=== PATIENT | male | born 1945 | race Caucasian/White ===

== ENCOUNTER 2019-06-11 09:29 | Inpatient (IN) | payer MEDICARE ==
[2019-06-06 10:01] LABS: BASOPHILS # (AUTO) 0.1 (0.0-0.1); BASOPHILS % 0.7 % (0.0-1.0); EOSINOPHILS # (AUTO) 0.1 (0.0-0.4); HEMATOCRIT 50.9 % (38.2-49.6); HEMOGLOBIN 17.1 g/dL (14.0-18.0); LYMPHOCYTES # (AUTO) 2.6 (1.0-3.2); LYMPHOCYTES % 28.1 % (18.0-39.1); MEAN CORPUSCULAR HEMOGLOBIN 33.9 pg (28-32); MEAN CORPUSCULAR HGB CONC 33.6 g/dL (31-35); MEAN CORPUSCULAR VOLUME 100.8 fL (81-99); MONOCYTES % 10.5 % (4.4-11.3); NEUTROPHILS # (AUTO) 5.5 (2.1-6.9); PLATELET COUNT 295 x10e3/uL (140-360); RED BLOOD COUNT 5.05 x10e6/uL (4.3-5.7); RED CELL DISTRIBUTION WIDTH 14.3 % (11.7-14.4)
[2019-06-06 10:17] LABS: ANION GAP 17.3 mmol/L (8-16); BLOOD UREA NITROGEN 15 mg/dL (7-26); BUN/CREATININE RATIO 16 (6-25); CALCIUM 10.4 mg/dL (8.4-10.2); CARBON DIOXIDE 29 mmol/L (22-29); CHLORIDE 101 mmol/L (98-107); CREATININE, SERUM 0.95 mg/dL (0.72-1.25); EST GLOMERULAR FILTRATION RATE > 60 ML/MIN (60-); GLUCOSE 104 mg/dL (74-118); POTASSIUM 4.3 mmol/L (3.5-5.1); SODIUM 143 mmol/L (136-145)
--- NOTE | 2019-06-06 11:01 | Diagnostic Imaging Report ---
EXAMINATION: CHEST 2 VIEWS INDICATION: Pre-operative COMPARISON: None FINDINGS: LINES/TUBES:None LUNGS:The lungs are mildly hyperinflated. No focal consolidation or pulmonary edema. PLEURA:No pleural effusion or pneumothorax. MEDIASTINUM:The cardiomediastinal silhouette appears normal in size and shape. Atherosclerotic calcifications of the thoracic aorta. BONES/SOFT TISSUES:No acute osseous injury. ABDOMEN:No free air under the diaphragm. IMPRESSION: Mildly hyperinflated lungs. No focal pneumonia or pulmonary edema. Signed by: Michael Carrion MD on 06/06/2019 10:58 AM
[~2019-06-11] VITALS: Ht 180.3 cm; Wt 85.3 kg
[~2019-06-11 09:29] MED LIST: LOSARTAN POTAS100 MG PO; LOVASTATIN10 MG PO; MULTI-VITAMIN1 EACH PO
--- OUTSIDE RECORDS SUMMARY | 2019-06-11 09:31 | XMS REPORT ---
[facility] Address Unknown Phone Unavailable Care Team Providers Care Customer Operations Manager Name Role Phone ARCELIA CLANCY Unavailable Unavailable Problems This patient has no known problems. Allergies, Adverse Reactions, Alerts This patient has no known allergies or adverse reactions. Medications This patient has no known medications. Results Test Description Test Time Test Comments Text Results Atomic Results Result Comments CHEST 2 VIEWS 2019-06-06 10:57:00 [place] [id number] Patient Name: MALIK ATKINSON MR #: [id number] : 1945 Age/Sex: 73/M Req #: [id number] [facility] Physician: Ordered by: ARCELIA CLANCY MD Report #: [id number] Location: OR Room/Bed: Procedure: [id number] DX/CHEST 2 VIEWS Exam Date: 06/06/19 Exam Time: 1010 REPORT STATUS: Signed EXAMINATION: CHEST 2 VIEWS INDICATION: Pre-operative COMPARISON: None FINDINGS: LINES/TUBES:None LUNGS:The lungs are mildly hyperinflated. No focal consolidation or pulmonary edema. PLEURA:No pleural effusion or pneumothorax. MEDIASTINUM:The cardiomediastinal silhouette appears normal in size and shape. Atherosclerotic calcifications of the thoracic aorta. BONES/SOFT TISSUES:No acute osseous injury. ABDOMEN:No free air under the diaphragm. IMPRESSION: Mildly hyperinflated lungs. No focal pneumonia or pulmonary edema. Signed by: Jose Carrion MD on 06/06/2019 10:58 AM Dictated By: JOSE CARRION MD 57 Transcribed By: MERY on 06/06/191057 COPY TO: ARCELIA CLANCY MD
[2019-06-11] MEDS ORDERED: METRONIDAZOLE 500MG/NS 100ML 0 ML IV ONE (10:02)
[2019-06-11] MEDS ORDERED: LEVOFLOXACIN 500MG/D5W 100ML 100 ML IV ONE (10:02)
[2019-06-11] MEDS ORDERED: METRONIDAZOLE 500MG/NS 100ML IV ONE (10:07)
[2019-06-11] MEDS ORDERED: BUPIVACAINE 0.5%/EPI 30 ML SDV INJ ONE (10:35)
[2019-06-11] MEDS ORDERED: BUPIVACAINE HCL 0.5% INJ 30 ML VIAL INJ ONE (10:52)
[2019-06-11] MEDS: DEXTROSE 5%/LACTATED RINGERS 1,000 ML IV SCH ×2 (13:11→21:25)
[2019-06-11] MEDS ORDERED: DIPHENHYDRAMINE HCL INJ 50 MG/ML VIAL IM PRN (13:15)
[2019-06-11] MEDS ORDERED: KETOROLAC TROMETHAMINE 30 MG/ML VIAL IV PRN (13:15)
[2019-06-11] MEDS ORDERED: ONDANSETRON HCL INJ 2MG/ML 2ML 2 MG/ML VIAL IV PRN (13:15)
[2019-06-11] MEDS ORDERED: NALOXONE HCL INJ 0.4 MG/ML AMP IV PRN (13:15)
[2019-06-11] MEDS ORDERED: SUGAMMADEX SODIUM 200 MG/2 ML VIAL IV ONE (13:24)
[2019-06-11] MEDS: HYDROMORPHONE 0.2MG/ML-SOD CHL 30ML PCA SYRINGE IV PRN (13:38)
--- NOTE | 2019-06-11 13:38 | NUR ---
Received patient from PACU. Awake, alert, lying in bed with respiration even and unlabored without SOB. 3L NC in placed, indwelling peña catheter in placed, intact draining yellow colored urine to bag. Abdominal Midline incision with dressing intact. clean and dry, no bleeding noted. Patient ion STRATIGRAPHER pump with IV fluids running at 100 ml/hr. Denies pain at this time. Spouse at bedside. Call light in reach.
[2019-06-11] MEDS ORDERED: HYDROMORPHONE 1MG/1ML INJ ONE (13:47)
[2019-06-11] MEDS ORDERED: PHENYLEPHRINE HCL 1% 10 MG/ML VIAL ONE (14:18)
--- NOTE | 2019-06-11 14:22 | Operative Report ---
DATE OF PROCEDURE: 06/11/2019 SURGEON: Miguel Angel Patel MD PREOPERATIVE DIAGNOSIS: Sigmoid colon diverticulitis. POSTOPERATIVE DIAGNOSIS: Sigmoid colon diverticulitis with extensive diverticular disease. PROCEDURE: Laparoscopic-assisted sigmoid colon resection. BIKE MECHANIC: None. ANESTHESIA: General. INDICATIONS AND FINDINGS: The patient is a 73-year-old male, who has had an episode of severe sigmoid colon diverticulitis. Workup revealed extensive diverticular disease involving most of the colon surgery, there was an area of inflammation, thickening and fibrosis in the mid sigmoid colon, where there was very severe diverticulosis. There was diverticular disease involving almost the entire colon, however, the distal sigmoid colon had minimal diverticular disease. The proximal sigmoid and distal descending colon had no inflammatory changes. TECHNIQUE: After adequate general endotracheal anesthesia, the patient is in supine position, and the abdomen was prepped and draped in a sterile fashion with ChloraPrep solution. Skin just below the umbilicus was infiltrated with 0.5% Marcaine. Incision was made. Abdominal wall was elevated and Veress needle was introduced. Pneumoperitoneum was then created. A 10 mm trocar and cannula was then passed through this wound. Laparoscopic camera was introduced. Initial laparoscopy revealed no free fluid. There was extensive diverticular disease involving the colon was initially seen, this turned out to be sigmoid colon. A 5 mm trocar and cannula was placed in the epigastrium, left midline and a 5 mm trocar and cannula was placed in lower midline. Evaluation of the colon revealed extensive diverticular disease involving almost the entire colon. However, the distal sigmoid colon had only minimal diverticular disease. No inflammation. There was an area of inflammation with fibrosis and thickening of the colon in the mid sigmoid. The colon was mobilized by dividing peritoneal attachments. The small bowel mesentery was adherent to the area of inflamed colon, this was freed using the LigaSure device, this was in the mid sigmoid colon. Left colon was mobilized all the way up to the splenic flexure colon using LigaSure device. The ureters at left ureter were identified and preserved. Once the colon was completely mobilized, the midline incision made in the periumbilical area. The peritoneal cavity entered the colon delivered up into the wound. The mid sigmoid colon was very inflamed and thickened causing with partial obstruction. The colon distally has had minimal diverticular disease and the colon was divided at this level, which was the distal sigmoid using a ESTEPHANIE stapler, the proximal colon divided and the distal descending colon, mesentery colon divided using LigaSure device. Some larger vessels were suture ligated with 2-0 silk and the specimen was removed. Anastomosis made between the proximal and distal colon using a ESTEPHANIE stapler and TL60 stapler. The colon easily came together without tension. The wound was irrigated with saline. Inspected for hemostasis, which was seen to be adequate, it was irrigated further with saline. All fluid aspirated, inspected once again for hemostasis, which was seen to be adequate. The midline fascia was closed with running suture of #1 PDS. Subcutaneous tissues were irrigated with saline. Skin to all wounds was closed with regis. Sterile dressing was applied. The patient tolerated the procedure well. Estimated blood loss was 250 mL. There were no complications. All counts were correct and the patient was taken to the recovery room in satisfactory condition. MD ALVAREZ To/[place]ALLAS /[id number] cc: Andres Thomas MD
[2019-06-11] MEDS ORDERED: ACETAMINOPHEN 1000 MG/100 ML IV PRN (15:00)
[2019-06-11] MEDS ORDERED: MIDAZOLAM HCL 2 MG/2 ML VIAL ONE (15:02)
[2019-06-11] MEDS ORDERED: FENTANYL CITRATE/PF 100MCG/2 ML INJ ONE (15:02)
--- NOTE | 2019-06-11 15:44 | NUR ---
Informed Dr. Villa of medical management consult
[2019-06-11 16:10] VITALS: BP 112/59
[2019-06-11 16:18] VITALS: BP 112/59
[2019-06-11 16:24] VITALS: BP 112/59
[2019-06-11] MEDS: METRONIDAZOLE 500MG/NS 100ML 100 ML IV SCH (17:25)
[2019-06-11] MEDS ORDERED: NEOSTIGMINE 5 MG/5ML SYR ONE (18:38)
[2019-06-11] MEDS ORDERED: GLYCOPYRROLATE INJ 1MG/ 5 ML SYR ONE (18:38)
[2019-06-11] MEDS ORDERED: SEVOFLURANE INHAL SOLN 250 ML PEN BTL ONE (18:38)
[2019-06-11] MEDS ORDERED: ACETAMINOPHEN 1000 MG/100 ML IV ONE (18:38)
[2019-06-11] MEDS ORDERED: ROCURONIUM BROMIDE 10 MG/ML 5ML VIAL ONE (18:38)
[2019-06-11] MEDS ORDERED: PROPOFOL IV EMULSION 10 MG/ML 20 ML VIAL ONE (18:38)
[2019-06-11] MEDS ORDERED: LIDOCAINE HCL 2% LOCAL INJ 5 ML SDV VIAL INJ ONE (18:38)
[2019-06-11] MEDS ORDERED: ONDANSETRON HCL INJ 2MG/ML 2ML 2 MG/ML VIAL ONE (18:38)
--- NOTE | 2019-06-11 19:11 | NUR ---
Report given to dyeing machine back tender. Respiration even and unlabored without SOB. Call light in reach.
[2019-06-11 20:00] VITALS: BP 114/70
[2019-06-11 21:00] VITALS: BP 114/70
[2019-06-11] MEDS: PRAVASTATIN 20 MG TAB PO SCH (21:26)
[2019-06-12] VITALS (10 sets, daily range): BP systolic 126–175; BP diastolic 66–97
[2019-06-12] MEDS: METRONIDAZOLE 500MG/NS 100ML 100 ML IV SCH ×4 (02:45→17:29)
[2019-06-12] MEDS: DEXTROSE 5%/LACTATED RINGERS 1,000 ML IV SCH ×3 (05:11→18:14)
[2019-06-12] MEDS: HYDROMORPHONE 0.2MG/ML-SOD CHL 30ML PCA SYRINGE IV PRN (05:31)
[2019-06-12 06:47] LABS: BASOPHILS # (AUTO) 0.1 (0.0-0.1); BASOPHILS % 0.4 % (0.0-1.0); EOSINOPHILS % 0.1 % (0.0-6.0); HEMATOCRIT 44.8 % (38.2-49.6); HEMOGLOBIN 14.7 g/dL (14.0-18.0); LYMPHOCYTES # (AUTO) 1.8 (1.0-3.2); LYMPHOCYTES % 12.6 % (18.0-39.1); MEAN CORPUSCULAR HEMOGLOBIN 33.2 pg (28-32); MEAN CORPUSCULAR HGB CONC 32.8 g/dL (31-35); MEAN CORPUSCULAR VOLUME 101.1 fL (81-99); MONOCYTES # (AUTO) 1.4 (0.2-0.8); MONOCYTES % 9.6 % (4.4-11.3); NEUTROPHILS # (AUTO) 10.9 (2.1-6.9); NEUTROPHILS % 76.8 % (38.7-80.0); PLATELET COUNT 225 x10e3/uL (140-360); RED BLOOD COUNT 4.43 x10e6/uL (4.3-5.7); RED CELL DISTRIBUTION WIDTH 14.2 % (11.7-14.4)
[2019-06-12 07:08] LABS: ANION GAP 14.9 mmol/L (8-16); BLOOD UREA NITROGEN 9 mg/dL (7-26); BUN/CREATININE RATIO 12 (6-25); CALCIUM 8.4 mg/dL (8.4-10.2); CARBON DIOXIDE 25 mmol/L (22-29); CHLORIDE 101 mmol/L (98-107); CREATININE, SERUM 0.75 mg/dL (0.72-1.25); EST GLOMERULAR FILTRATION RATE > 60 ML/MIN (60-); GLUCOSE 67 mg/dL (74-118); POTASSIUM 3.9 mmol/L (3.5-5.1); SODIUM 137 mmol/L (136-145)
--- NOTE | 2019-06-12 07:43 | Consultation ---
DATE OF CONSULTATION: REASON FOR CONSULTATION: Postoperative management. HISTORY OF PRESENT ILLNESS: The patient is a 73-year-old gentleman, well known to me, who is now status post sigmoidectomy secondary to severe diverticulitis, who is doing well postoperatively with some pain in the abdominal area, but denies any chest pain, fever, chills, nausea, vomiting, headache, or dizziness. PAST MEDICAL HISTORY: Significant for hyperlipidemia, hypertension, cognitive impairment, and hypotestosterone. MEDICATIONS: See MAR. ALLERGIES: PENICILLIN, WHICH IS HIVES AND MORPHINE, WHICH IS ITCHING. SOCIAL HISTORY: He is . He lives at home with his . He drinks about two drinks per day and he is one pack per day smoker. FAMILY HISTORY: Breast cancer and diabetes. PHYSICAL EXAMINATION: VITAL SIGNS: Temperature 98.6, pulse 74, blood pressure 136/74, and sats 98%. GENERAL: He is in no apparent distress, lying in bed. NECK: Supple. CARDIOVASCULAR: Regular rate and rhythm. LUNGS: Clear to auscultation bilaterally. ABDOMEN: Soft. No peritoneal signs. Nondistended. No bowel sounds at this current time. EXTREMITIES: No clubbing or cyanosis. NEUROLOGIC: Nonfocal. ASSESSMENT AND PLAN: 1. Status post sigmoidectomy and diverticular disease. Continue with postoperative care. 2. Hypertension. We will continue to monitor since he is n.p.o. 3. Hyperlipidemia. We will restart his medicine once he is p.o. 4. Cognitive impairment. We will also restart his medications once he is p.o. 5. Abdominal pain. Continue with pain control. Please see hospital chart for full details. MD CARLOS Rahman/[place] /[id number]
--- NOTE | 2019-06-12 07:52 | NUR ---
patient endorsed to next shift for continuity of care.
[2019-06-12] MEDS: LOSARTAN POTASSIUM 100 MG TAB PO SCH (08:42)
[2019-06-12] MEDS: LEVOFLOXACIN 500MG/D5W 100ML 100 ML IV SCH (08:42)
--- NOTE | 2019-06-12 09:38 | NUR ---
After trying to have BM patient states " I could not have BM" small amount of blood clots and small amount of bright red blood noted. Patient AAOX4 to time, person, place. Respirations even and unlabored. O2 2L NC.Paged Dr. Patel to notify of patient's status. No new orders.
--- NOTE | 2019-06-12 19:00 | NUR ---
Report given to oncoming nurse of patient's status. Resting in bed. No s/s of acute distress noted. Side rails upx2, call light within reach. Instructed to use call light for assistance. Voiced understanding
[2019-06-12] MEDS: PRAVASTATIN 20 MG TAB PO SCH (21:26)
[2019-06-13] VITALS (7 sets, daily range): BP systolic 120–153; BP diastolic 71–85
[2019-06-13] MEDS: METRONIDAZOLE 500MG/NS 100ML 100 ML IV SCH ×4 (00:55→17:14)
[2019-06-13] MEDS: HYDROMORPHONE 0.2MG/ML-SOD CHL 30ML PCA SYRINGE IV PRN (03:49)
[2019-06-13] MEDS: DEXTROSE 5%/LACTATED RINGERS 1,000 ML IV SCH ×2 (04:41→12:45)
--- NOTE | 2019-06-13 06:50 | NUR ---
patient condition throughout the night was stable, patient endorsed to next shift for continuity of care.
--- NOTE | 2019-06-13 07:00 | NUR ---
BEDSIDE ROUNDS COMPLETE NO DISTRESS NOTED UPDATED ON POC VOICED UNDERSTANDING, RAMIREZ PAIN AT THIS TIME, DSG TO ABDOMEN C/D/I, IVF INFUSING TO R AC 20G NO SS OF INFILTRATION NOTED, NO OTHER CO VOCIED CALL LIGHT IN REACH WILL CONTINUE TO MONITOR
[2019-06-13] MEDS: LOSARTAN POTASSIUM 100 MG TAB PO SCH (09:00)
[2019-06-13] MEDS: LEVOFLOXACIN 500MG/D5W 100ML 100 ML IV SCH (09:40)
[2019-06-13] MEDS ORDERED: HYDROMORPHONE 0.2MG/ML-SOD CHL 30ML PCA SYRINGE IV PRN (13:45)
--- NOTE | 2019-06-13 15:15 | NUR ---
ALL SOURCE COLLECTION MANAGER DC'D PER ORDERED, WILL CONTINUE TO MONITOR
[2019-06-13] MEDS ORDERED: HYDROCODONE/APAP 7.5MG-325MG 1 EA TAB PO PRN (19:00)
--- NOTE | 2019-06-13 19:05 | NUR ---
SPOKE WITH DR CLANCY RE: PAIN PO PAIN MEDICATION NEW ORDERS NOTED
[2019-06-13] MEDS: PRAVASTATIN 20 MG TAB PO SCH (21:36)
[2019-06-14] VITALS (8 sets, daily range): BP systolic 109–138; BP diastolic 56–74
[2019-06-14] MEDS: METRONIDAZOLE 500MG/NS 100ML 100 ML IV SCH ×4 (00:10→18:20)
[2019-06-14] MEDS: DEXTROSE 5%/LACTATED RINGERS 1,000 ML IV SCH ×2 (01:57→15:52)
--- NOTE | 2019-06-14 06:38 | NUR ---
DE LA FUENTE WAS D/C PATIENT TOLERATED WELL. DE LA FUENTE INTACT. THE PATIENT WAS ABLE TO GET UP AND WALK TO THE BATHROOM WITH WALKER AND STAND BY ASSISTANCE AND WAS ABLE TO VOID USING THE TOILET.
--- NOTE | 2019-06-14 07:00 | NUR ---
RECEIVED PATIENT RESTING IN BED NO SIGNS OF DISTRESS. BED LOW, WHEELS LOCKED, SIDE RAILS X2. CALL LIGHT IN REACH WILL CONTINUE TO MONITOR PATIENT.
[2019-06-14] MEDS: LEVOFLOXACIN 500MG/D5W 100ML 100 ML IV SCH (08:02)
[2019-06-14] MEDS: LOSARTAN POTASSIUM 100 MG TAB PO SCH (08:05)
[2019-06-14] MEDS ORDERED: ONDANSETRON HCL 4 MG ORAL DISINTEGRATING TAB PO PRN (11:45)
--- NOTE | 2019-06-14 14:29 | Progress Note ---
DATE: SUBJECTIVE: The patient is doing well. Still not passing gas. His pain is doing better overall. OBJECTIVE: VITAL SIGNS: Stable. He is afebrile. GENERAL: No apparent distress. CARDIOVASCULAR: Regular rate and rhythm. LUNGS: Decreased breath sounds. ABDOMEN: Hypoactive bowel sounds, but they are present. Nondistended. No peritoneal signs. EXTREMITIES: No clubbing or cyanosis. NEUROLOGIC: Nonfocal. ASSESSMENT AND PLAN: 1. Status post diverticular surgery. Continue with postoperative care per Dr. Patel. 2. Abdominal pain. Continue with pain control. 3. Hypertension. We will continue to monitor. Please see hospital chart for full details. MD CARLOS Rahman/ADLLAS /[id number]
--- NOTE | 2019-06-14 21:10 | NUR ---
Assessment done.no resp.distress,no pain voiced.voided.bed locked an din lowest position.phone and call light within reach.instructed to call for assistance as needed.
[2019-06-14] MEDS: PRAVASTATIN 20 MG TAB PO SCH (21:23)
[2019-06-15] VITALS (8 sets, daily range): BP systolic 106–133; BP diastolic 58–72
[2019-06-15] MEDS: METRONIDAZOLE 500MG/NS 100ML 100 ML IV SCH ×2 (00:24→05:22)
[2019-06-15] MEDS: DEXTROSE 5%/LACTATED RINGERS 1,000 ML IV SCH (05:22)
--- NOTE | 2019-06-15 06:58 | NUR ---
Bed side shift report given to the oncoming Rn.stable condition.
--- NOTE | 2019-06-15 07:03 | NUR ---
RECEIVED PATIENT ASLEEP IN BED NO SIGNS OF DISTRESS. BED LOW, WHEELS LOCKED, SIDE RAILS X2. CALL LIGHT IN REACH WILL CONTINUE TO MONITOR PATIENT.
--- NOTE | 2019-06-15 08:04 | Progress Note ---
DATE: This is Dr. Panchito Shaikh covering for Dr. Thomas. Patient of Dr. Thomas's SUBJECTIVE: The patient is status post colon resection and for diverticular surgery, the patient continues to be on postoperative care. Bowel sounds are present. The patient did have a bowel movement currently according to the patient. No chest pains. No shortness of breath. The patient has complained of reflux esophagitis. OBJECTIVE: VITAL SIGNS: Temperature is 97.9, pulse of 80, respirations of 18, blood pressure is 114/60, pulse oximetry of 96%. HEENT: The patient is anicteric. CVS: S1 and S2 normal. ABDOMEN: Has a PEG tube in. Bowel sounds are very hypoactive. EXTREMITIES: No clubbing, no cyanosis, no edema. LABORATORY VALUES: [place] [address], hemoglobin of 14.7. Chemistry shows sodium of 137, potassium of 3.9, BUN of 12, creatinine of 0.75. ASSESSMENT: A 73-year-old patient status post colon resection, sigmoid colon resection for diverticulitis. The patient is currently feeling better except for reflux esophagitis. We will start him on pantoprazole 40 mg q.a.m. and the patient continues to be on pain management as needed. Further recommendation per clinical course. We will continue on him hypertensive medication, which includes losartan. Currently, the patient is on Levaquin and metronidazole. MD PIERO NievesJ/MODL /[id number]
[2019-06-15] MEDS: LOSARTAN POTASSIUM 100 MG TAB PO SCH (09:20)
[2019-06-15] MEDS: LEVOFLOXACIN 500MG/D5W 100ML 100 ML IV SCH (09:20)
[2019-06-15] MEDS: PANTOPRAZOLE SOD 40 MG TABEC PO SCH (09:20)
[2019-06-15] MEDS ORDERED: SODIUM CHLORIDE FLUSH 10 ML SYR INJ PRN (11:00)
--- NOTE | 2019-06-15 12:05 | NUR ---
PATIENT A/O X3, EVEN RESPIRATIONS ON RA. LUNG SOUNDS CLEAR TO AUSCULTATION. PATIENT ADVANCED TO REGULAR DIET TODAY PER DR. CLANCY ORDER. PATIENT PASSING GAS, NO BM AT THIS TIME. LEFT FA 20 GAUGE IV SL. NO PAIN AT THIS TIME. DRESSING TO ABDOMEN CLEAN, DRY, AND INTACT. VS STABLE. CALL LIGHT IN REACH WILL CONTINUE TO MONITOR PATIENT.
--- NOTE | 2019-06-15 19:00 | NUR ---
Bed side shift report taken from morning Rn.pt is lyeing in the bed.stable condition.no pain voiced.
[2019-06-15] MEDS: PRAVASTATIN 20 MG TAB PO SCH (20:28)
[2019-06-16] VITALS (8 sets, daily range): BP systolic 104–123; BP diastolic 62–79
[2019-06-16 06:23] LABS: BASOPHILS # (AUTO) 0.1 (0.0-0.1); BASOPHILS % 0.7 % (0.0-1.0); EOSINOPHILS # (AUTO) 0.4 (0.0-0.4); EOSINOPHILS % 5.2 % (0.0-6.0); HEMATOCRIT 41.8 % (38.2-49.6); HEMOGLOBIN 13.8 g/dL (14.0-18.0); LYMPHOCYTES # (AUTO) 1.9 (1.0-3.2); MONOCYTES # (AUTO) 1.1 (0.2-0.8); MONOCYTES % 13.2 % (4.4-11.3); NEUTROPHILS % 58.2 % (38.7-80.0); PLATELET COUNT 224 x10e3/uL (140-360); RED BLOOD COUNT 4.18 x10e6/uL (4.3-5.7); RED CELL DISTRIBUTION WIDTH 13.9 % (11.7-14.4)
[2019-06-16 06:37] LABS: ANION GAP 9.1 mmol/L (8-16); BLOOD UREA NITROGEN 8 mg/dL (7-26); BUN/CREATININE RATIO 12 (6-25); CALCIUM 9.1 mg/dL (8.4-10.2); CARBON DIOXIDE 28 mmol/L (22-29); CHLORIDE 103 mmol/L (98-107); CREATININE, SERUM 0.67 mg/dL (0.72-1.25); EST GLOMERULAR FILTRATION RATE > 60 ML/MIN (60-); GLUCOSE 85 mg/dL (74-118); POTASSIUM 3.1 mmol/L (3.5-5.1); SODIUM 137 mmol/L (136-145)
--- NOTE | 2019-06-16 07:00 | NUR ---
Bed side shift report given to the oncoming Rn.stable condition.
--- NOTE | 2019-06-16 07:00 | NUR ---
RECEIVED PATIENT ASLEEP IN BED NO SIGNS OF DISTRESS. BED LOW, WHEELS LOCKED, SIDE RAILS X2. CALL LIGHT IN REACH WILL CONTINUE TO MONITOR PATIENT.
[2019-06-16] MEDS ORDERED: POTASSIUM CHLORIDE 20 MEQ TAB CR PO STA (07:16)
[2019-06-16] MEDS: PANTOPRAZOLE SOD 40 MG TABEC PO SCH (08:35)
[2019-06-16] MEDS: LOSARTAN POTASSIUM 100 MG TAB PO SCH (08:35)
[2019-06-16] MEDS: DOCUSATE SODIUM 100 MG CAP PO SCH ×2 (08:35→16:37)
--- NOTE | 2019-06-16 11:00 | NUR ---
PATIENT A/O X3, EVEN RESPIRATIONS ON RA. LUNG SOUNDS CLEAR TO AUSCULTATION. PATIENT PASSING GAS, NO BM AT THIS TIME. LEFT FA 20 GAUGE IV SL. NO PAIN AT THIS TIME. ABDOMINAL INCISION OPEN TO AIR, NO DRAINAGE. VS STABLE. CALL LIGHT IN REACH WILL CONTINUE TO MONITOR PATIENT.
--- NOTE | 2019-06-16 13:46 | NUR ---
PATIENT AMBULATING WITH IN HALLWAY. STEADY GAIT.
--- NOTE | 2019-06-16 13:54 | Progress Note ---
DATE: Covering for Dr. Thomas. SUBJECTIVE: The patient is status post colon surgical resection, has some bowel sounds. No bowel movements yet. Positive for gas. No chest pain. No shortness of breath. The patient is ambulating. OBJECTIVE: VITAL SIGNS: Temperature is 98.1, pulse of 67, respirations of 18, blood pressure is 116/69, and pulse oximetry of 98%. HEENT: Normocephalic and atraumatic. Pupils reactive to light and accommodation. CVS: S1 and S2 normal. Regular rate and rhythm. Bowel sounds positive. EXTREMITIES: No clubbing, no cyanosis, no edema. Scar in the abdomen, clean. No seepage. LABORATORY VALUES: White count is 8,000 and hemoglobin is 13.2. Chemistry shows sodium 137, potassium of 3.1, and BUN and creatinine are normal. ASSESSMENT: 1. A 73-year-old male, status post diverticular surgery, status post colon resection, doing well. 2. Hypokalemia. We will replace potassium. The patient to ambulate. Discharge as soon as the patient has a bowel movement. Further recommendation as an outpatient. MD TRISTAN Nieves/MODL /[id number]
--- NOTE | 2019-06-16 15:37 | NUR ---
SPOKE WITH DR. CLANCY REGARDING PATIENT STILL NOT ABLE TO HAVE BM. NEW ORDER FOR FLEET ENEMA. NEW ORDERS IMPLEMENTED.
[2019-06-16] MEDS ORDERED: MINERAL OIL 132 ML BTL PR NR (15:45)
--- NOTE | 2019-06-16 19:00 | NUR ---
Bed side shift report taken from morning Kika in the bed.stable condition.had no bm .
[2019-06-16] MEDS: PRAVASTATIN 20 MG TAB PO SCH (20:22)
--- NOTE | 2019-06-16 22:14 | NUR ---
Assessment done.incision site is open to air.no pain voiced.bed locked and in lowest position.phone and call light within reach.instructed to call for assistance as needed.
[2019-06-17] VITALS (7 sets, daily range): BP systolic 104–116; BP diastolic 59–83
--- NOTE | 2019-06-17 06:00 | NUR ---
Has no bowel movement . was doing rounds.no new orders.
--- NOTE | 2019-06-17 07:00 | NUR ---
Bed side shift report given to the oncoming Rn.stable condition.
[2019-06-17] MEDS: PANTOPRAZOLE SOD 40 MG TABEC PO SCH (08:56)
[2019-06-17] MEDS: DOCUSATE SODIUM 100 MG CAP PO SCH ×2 (08:56→17:24)
[2019-06-17] MEDS: LOSARTAN POTASSIUM 100 MG TAB PO SCH (08:57)
[2019-06-17] MEDS ORDERED: MAGNESIUM HYDROXIDE 30 ML UDC PO ONE (12:15)
--- NOTE | 2019-06-17 15:05 | NUR ---
Nutrition Screen Note RD Recommendation for Physician: - Continue Regular diet as tolerated Plan of Care: RD following, monitoring for tolerance and adequacy Nutrition reason for involvement: LOS Primary Diagnose(s): sigmoid diverticulitis PMH: HTN, HLD, cognitive impairment Ht: 71 in Wt: 188 lb BMI: 26.2 kg/m2 IBW: [address] Assessment: (06/17) 73 YOM admitted for sigmoid diverticulitis requiring sigmoidectomy, seen today for LOS. Pt discussed during am rounds, clear to discharge home pending BM- no BM since surgery. Pt reports good appetite and intake currently and IT GENERALIST. Pt denies wt loss, reports UBW of 190 lb. Pt denies N/V or abdominal pain, states that at baseline he slow to have a BM after eating, sometimes days at a time and denies constipation. Pt given fleet enema yesterday, no BM. Pt with no questions or concerns at time of visit. Chart reviewed. Labs and meds reviewed. Will continue to monitor. Current Diet: Regular Malnutrition Evaluation (06/17/19) The patient does not meet criteria for a specified degree of malnutrition at this time. Will re-evaluate at follow-up as appropriate. Diet Education Needs Assessment: Diet education not indicated, on Regular diet. Diet tolerance: tolerating po Nutrition Care Level: low Signed: Adia Chand RD, LD, [facility]
--- NOTE | 2019-06-17 19:00 | NUR ---
Completed bedside report with morning nurse. Pt alert and orient to name, sitting on toilet. Denies pain or discomfort. No BM. Call light within reach. Will continue to monitor.
[2019-06-17] MEDS: PRAVASTATIN 20 MG TAB PO SCH (21:00)
--- NOTE | 2019-06-17 21:30 | NUR ---
Admin 4 oz warm prune juice, Pt tolerated well.
[2019-06-18] VITALS: BP 113/72
[2019-06-18 04:00] VITALS: BP 130/82
--- NOTE | 2019-06-18 06:25 | NUR ---
PT RESTING IN BED WITH EYES CLOSED LYING SUPINE. NO S/S OF PAIN. LEISA FLOWING ORANGE URINE. AT BEDSIDE. CALL RODRIGUEZ WITHIN REACH. Addendum: 06/18/19 at 0645 by Vern Turk RN WILFREDO DE LA FUENTE
[2019-06-18 07:40] VITALS: BP 123/76
[2019-06-18] MEDS: PANTOPRAZOLE SOD 40 MG TABEC PO SCH (08:10)
[2019-06-18 08:23] VITALS: BP 123/76
[2019-06-18] MEDS: DOCUSATE SODIUM 100 MG CAP PO SCH (08:48)
[2019-06-18] MEDS: LOSARTAN POTASSIUM 100 MG TAB PO SCH (08:51)
[2019-06-18] MEDS ORDERED: POLYETHYLENE GLYCOL 3350 17 GM PACK PO SCH (09:00)
--- NOTE | 2019-06-18 09:00 | NUR ---
The pt. has been made n p o for procedure under anesthesia and Dr. Carbajal visited and spoke with the pt. and spouse. Addendum: 06/18/19 at 1503 by Esther Ho RN This note entered on the wrong chart.
--- NOTE | 2019-06-18 09:00 | NUR ---
The pt. reports no bowel movement since before surgery. He is aware that all he needs is to eacuate bowels.
[2019-06-18 11:08] VITALS: BP 146/83
--- NOTE | 2019-06-18 15:05 | NUR ---
The pt. has had a bowel movement and the dr.'s were notified and discharge order received.
== END 2019-06-18 15:44 | disposition home or self-care (01) | DRG 331 ==
LOC: OR 09:29 → PACU V 13:36 → MED/SURG 15:22
PROVIDERS: ADMIT Surgery; ATTEND Surgery
PROC: 0DTN0ZZ Resection of Sigmoid Colon, Open Approach (ICD-10-PCS; principal; 2019-06-11 11:00)
DX: K57.32 Diverticulitis of large intestine without perforation or abscess without bleeding (principal); I10 Essential (primary) hypertension; E78.5 Hyperlipidemia, unspecified; Z88.5 Allergy status to narcotic agent; Z88.0 Allergy status to penicillin; Z96.652 Presence of left artificial knee joint; Z80.3 Family history of malignant neoplasm of breast; Z83.3 Family history of diabetes mellitus; F17.210 Nicotine dependence, cigarettes, uncomplicated; G31.84 Mild cognitive impairment of uncertain or unknown etiology; K21.0 Gastro-esophageal reflux disease with esophagitis; E87.6 Hypokalemia; D64.9 Anemia, unspecified
CPT/HCPCS: 36415; 71046; 80048; 85025; 86850; 86900; 88307; 93005; 96361; J1170; J1885; J1956; J2001; J2250; J2370; J2405; J3010

== ENCOUNTER 2022-09-15 11:30 | Observation (INO) | payer MEDICARE, OTHER ==
[~2022-09-15] VITALS: Ht 180.3 cm; Wt 85.3 kg
[2022-09-15] MEDS ORDERED: ONDANSETRON HCL INJ 2MG/ML 2ML 2 MG/ML VIAL IV PRN (12:45)
[2022-09-15] MEDS ORDERED: Morphine 4mg INJECTION 4 MG/ML INJ IV PRN (12:45)
[2022-09-15] MEDS ORDERED: FENTANYL CITRATE/PF 100MCG/2 ML INJ IV PRN (13:00)
[2022-09-15 13:19] LABS: BASOPHILS # (AUTO) 0.1 (0.0-0.1); BASOPHILS % 0.7 % (0.0-1.0); EOSINOPHILS # (AUTO) 0.1 (0.0-0.4); EOSINOPHILS % 1.3 % (0.0-6.0); HEMATOCRIT 47.8 % (38.2-49.6); HEMOGLOBIN 14.8 g/dL (14.0-18.0); LYMPHOCYTES # (AUTO) 1.9 (1.0-3.2); LYMPHOCYTES % 19.3 % (18.0-39.1); MEAN CORPUSCULAR HEMOGLOBIN 32.5 pg (28-32); MEAN CORPUSCULAR VOLUME 105.1 fL (81-99); MONOCYTES # (AUTO) 1.1 (0.2-0.8); NEUTROPHILS # (AUTO) 6.6 (2.1-6.9); NEUTROPHILS % 67.5 % (38.7-80.0); PLATELET COUNT 263 x10e3/uL (140-360); RED BLOOD COUNT 4.55 x10e6/uL (4.3-5.7); RED CELL DISTRIBUTION WIDTH 13.1 % (11.7-14.4)
[2022-09-15 13:42] LABS: ALBUMIN 3.5 g/dL (3.5-5.0); ALBUMIN/GLOBULIN RATIO 0.7 (0.8-2.0); ANION GAP 16.2 mmol/L (8-16); CALCIUM 10.4 mg/dL (8.4-10.2); CREATININE, SERUM 0.84 mg/dL (0.72-1.25); POTASSIUM 4.2 mmol/L (3.5-5.1)
[2022-09-15] MEDS: METRONIDAZOLE 500MG/NS 100ML 100 ML IV SCH ×2 (14:08→20:45)
[2022-09-15] MEDS: SODIUM CHLORIDE 0.9% 1000ML 1,000 ML IV SCH (14:08)
[2022-09-15] MEDS: LEVOFLOXACIN 500MG/D5W 100ML 100 ML IV SCH (14:45)
[2022-09-15 14:48] VITALS: BP 124/96
[2022-09-15] MEDS ORDERED: IOPAMIDOL 370 MG/ML 100 ML INFUS..BTL INJ ONE (14:50)
[2022-09-15] MEDS ORDERED: LIPITOR20 MG PO (15:54)
[2022-09-15 16:27] VITALS: BP 124/96
[2022-09-15 20:36] VITALS: BP 142/80
[2022-09-15 23:26] VITALS: BP 142/80
[2022-09-16] VITALS (7 sets, daily range): BP systolic 112–142; BP diastolic 69–79
[2022-09-16] MEDS: SODIUM CHLORIDE 0.9% 1000ML 1,000 ML IV SCH ×4 (04:45→22:25)
[2022-09-16] MEDS: METRONIDAZOLE 500MG/NS 100ML 100 ML IV SCH ×3 (05:14→22:24)
[2022-09-16 05:51] LABS: BASOPHILS # (AUTO) 0.1 (0.0-0.1); BASOPHILS % 0.7 % (0.0-1.0); EOSINOPHILS # (AUTO) 0.2 (0.0-0.4); EOSINOPHILS % 2.4 % (0.0-6.0); HEMATOCRIT 39.2 % (38.2-49.6); HEMOGLOBIN 13.1 g/dL (14.0-18.0); LYMPHOCYTES # (AUTO) 2.1 (1.0-3.2); LYMPHOCYTES % 22.3 % (18.0-39.1); MEAN CORPUSCULAR HEMOGLOBIN 32.3 pg (28-32); MEAN CORPUSCULAR HGB CONC 33.4 g/dL (31-35); MEAN CORPUSCULAR VOLUME 96.8 fL (81-99); MONOCYTES # (AUTO) 1.1 (0.2-0.8); MONOCYTES % 12.2 % (4.4-11.3); NEUTROPHILS # (AUTO) 5.7 (2.1-6.9); NEUTROPHILS % 62.1 % (38.7-80.0); PLATELET COUNT 232 x10e3/uL (140-360); RED BLOOD COUNT 4.05 x10e6/uL (4.3-5.7); RED CELL DISTRIBUTION WIDTH 12.9 % (11.7-14.4)
[2022-09-16 06:17] LABS: ALBUMIN/GLOBULIN RATIO 0.8 (0.8-2.0); ANION GAP 12.2 mmol/L (8-16); CALCIUM 9.2 mg/dL (8.4-10.2); CREATININE, SERUM 0.8 mg/dL (0.72-1.25); POTASSIUM 4.2 mmol/L (3.5-5.1)
[2022-09-16] MEDS ORDERED: ONDANSETRON HCL 4 MG ORAL DISINTEGRATING TAB SL PRN (09:15)
[2022-09-16] MEDS: LOSARTAN POTASSIUM 25 MG TAB PO SCH (09:57)
[2022-09-16] MEDS: LEVOFLOXACIN 500MG/D5W 100ML 100 ML IV SCH (13:07)
[2022-09-16] MEDS ORDERED: ZOLPIDEM TARTRATE 10 MG TAB PO PRN (21:00)
[2022-09-16] MEDS: ATORVASTATIN 40 MG TAB PO SCH (22:24)
[2022-09-17] VITALS (7 sets, daily range): BP systolic 111–147; BP diastolic 77–86
[2022-09-17] MEDS: SODIUM CHLORIDE 0.9% 1000ML 1,000 ML IV SCH ×2 (05:39→12:24)
[2022-09-17] MEDS: METRONIDAZOLE 500MG/NS 100ML 100 ML IV SCH ×3 (05:39→21:19)
[2022-09-17] MEDS: LOSARTAN POTASSIUM 25 MG TAB PO SCH (08:38)
[2022-09-17] MEDS ORDERED: ACETAMINOPHEN 325 MG TAB PO PRN (09:45)
[2022-09-17] MEDS: PANTOPRAZOLE SOD 40 MG TABEC PO SCH (10:54)
[2022-09-17] MEDS: DOCUSATE SODIUM 100 MG CAP PO SCH (10:54)
[2022-09-17] MEDS: LEVOFLOXACIN 500MG/D5W 100ML 100 ML IV SCH (12:24)
[2022-09-17] MEDS: ATORVASTATIN 40 MG TAB PO SCH (21:19)
[2022-09-18] VITALS: BP 111/56
[2022-09-18 04:00] VITALS: BP 121/57
[2022-09-18] MEDS: SODIUM CHLORIDE 0.9% 1000ML 1,000 ML IV SCH (05:41)
[2022-09-18] MEDS: METRONIDAZOLE 500MG/NS 100ML 100 ML IV SCH (05:41)
[2022-09-18 07:48] LABS: BASOPHILS # (AUTO) 0.1 (0.0-0.1); EOSINOPHILS # (AUTO) 0.2 (0.0-0.4); EOSINOPHILS % 1.9 % (0.0-6.0); HEMATOCRIT 46.5 % (38.2-49.6); HEMOGLOBIN 14.6 g/dL (14.0-18.0); LYMPHOCYTES # (AUTO) 2.9 (1.0-3.2); MEAN CORPUSCULAR HEMOGLOBIN 32.1 pg (28-32); MEAN CORPUSCULAR HGB CONC 31.4 g/dL (31-35); MEAN CORPUSCULAR VOLUME 102.2 fL (81-99); MONOCYTES # (AUTO) 0.9 (0.2-0.8); MONOCYTES % 10.2 % (4.4-11.3); NEUTROPHILS % 54.7 % (38.7-80.0); PLATELET COUNT 255 x10e3/uL (140-360); RED BLOOD COUNT 4.55 x10e6/uL (4.3-5.7); RED CELL DISTRIBUTION WIDTH 12.5 % (11.7-14.4)
[2022-09-18 08:08] LABS: ANION GAP 15.7 mmol/L (8-16); CALCIUM 9.9 mg/dL (8.4-10.2); CREATININE, SERUM 0.79 mg/dL (0.72-1.25); POTASSIUM 3.7 mmol/L (3.5-5.1)
[2022-09-18 08:29] LABS: ERYTHROCYTE SEDIMENTATION RATE 41 mm/hr (0-13)
[2022-09-18 08:40] VITALS: BP 99/84
[2022-09-18] MEDS: LOSARTAN POTASSIUM 25 MG TAB PO SCH (08:41)
[2022-09-18] MEDS: DOCUSATE SODIUM 100 MG CAP PO SCH (08:41)
[2022-09-18] MEDS: PANTOPRAZOLE SOD 40 MG TABEC PO SCH (08:41)
[2022-09-18 09:10] VITALS: BP 99/84
== END 2022-09-18 10:05 | disposition home or self-care (01) ==
LOC: ER 11:49 → ERHOLD 12:49 → INTOOBSV 12:49 → MED/SURG3 14:48
PROVIDERS: ADMIT Internal Medicine; ATTEND Internal Medicine
DX: K57.32 Diverticulitis of large intestine without perforation or abscess without bleeding (principal); Z20.822 Contact with and (suspected) exposure to COVID-19; J44.9 Chronic obstructive pulmonary disease, unspecified; K52.9 Noninfective gastroenteritis and colitis, unspecified
CPT/HCPCS: 36415 ×3; 74177; 80048; 80053 ×2; 83690; 85025 ×3; 85651; 94799; 99284; C9113; G0378 ×4; J1956 ×3; J7030 ×3; Q9967; S0164 ×2; U0002

== ENCOUNTER 2022-09-30 08:58 | Inpatient (IN) | payer MEDICARE, OTHER ==
[~2022-09-30] VITALS: Ht 180.3 cm; Wt 83.9 kg
[~2022-09-30 08:58] MED LIST changes: +LIPITOR20 MG PO
[2022-09-30] MEDS ORDERED: SODIUM CHLORIDE 0.9% 1000ML 1,000 ML IV STA (09:10)
[2022-09-30 09:34] LABS: BASOPHILS # (AUTO) 0.1 (0.0-0.1); BASOPHILS % 0.6 % (0.0-1.0); EOSINOPHILS # (AUTO) 0.1 (0.0-0.4); HEMOGLOBIN 14.2 g/dL (14.0-18.0); LYMPHOCYTES # (AUTO) 2.2 (1.0-3.2); LYMPHOCYTES % 21.1 % (18.0-39.1); MEAN CORPUSCULAR HEMOGLOBIN 32.9 pg (28-32); MEAN CORPUSCULAR HGB CONC 34.6 g/dL (31-35); MEAN CORPUSCULAR VOLUME 94.9 fL (81-99); MONOCYTES # (AUTO) 0.8 (0.2-0.8); NEUTROPHILS # (AUTO) 7.3 (2.1-6.9); PLATELET COUNT 252 x10e3/uL (140-360); RED BLOOD COUNT 4.32 x10e6/uL (4.3-5.7); RED CELL DISTRIBUTION WIDTH 13.9 % (11.7-14.4)
[2022-09-30] MEDS ORDERED: DIATRIZOATE MEGL/DIATRIZOA SOD 30 ML BTL PO ONE (09:49)
[2022-09-30 09:59] LABS: INR 1.04; PROTHROMBIN TIME 13.8 seconds (11.9-14.5)
[2022-09-30 10:00] LABS: PARTIAL THROMBOPLASTIN TIME 34.2 seconds (23.8-35.5)
[2022-09-30 10:08] LABS: ALANINE AMINOTRANSFERASE 11 IU/L (0-55); ALBUMIN 3.2 g/dL (3.5-5.0); ALBUMIN/GLOBULIN RATIO 0.9 (0.8-2.0); ALKALINE PHOSPHATASE 62 IU/L (40-150); ANION GAP 13.1 mmol/L (8-16); BLOOD UREA NITROGEN 10 mg/dL (7-26); BUN/CREATININE RATIO 12 (6-25); CALCIUM 9.8 mg/dL (8.4-10.2); CARBON DIOXIDE 31 mmol/L (22-29); CHLORIDE 101 mmol/L (98-107); CREATINE KINASE 20 IU/L (30-200); CREATININE, SERUM 0.86 mg/dL (0.72-1.25); GLUCOSE 246 mg/dL (74-118); LIPASE 10 U/L (8-78); MAGNESIUM 1.6 MG/DL (1.3-2.1); POTASSIUM 4.1 mmol/L (3.5-5.1); SODIUM 141 mmol/L (136-145)
[2022-09-30] MEDS: MEROPENEM 1 GM in SODIUM CHLORIDE 0.9% 100 ML IV SCH ×2 (10:24→17:01)
[2022-09-30] MEDS ORDERED: IOPAMIDOL 370 MG/ML 100 ML INFUS..BTL INJ ONE (11:12)
[2022-09-30] MEDS: SODIUM CHLORIDE 0.9% 1000ML 1,000 ML IV SCH (11:29)
[2022-09-30 12:17] LABS: CLARITY,URINE CLEAR (CLEAR); COLOR,URINE YELLOW (YELLOW); KETONES,URINE NEGATIVE (NEGATIVE); LEUKOCYTE ESTERASE ,URINE NEGATIVE (NEGATIVE); NITRITE,URINE NEGATIVE (NEGATIVE); PROTEIN,URINE DIPSTICK NEGATIVE (NEGATIVE); URINE UROBILINOGEN 0.2 mg/dL (0.2 - 1)
[2022-09-30 12:30] LABS: BACTERIA,URINE FEW /HPF; EPITHELIAL CELLS,URINE RARE /LPF; RBC,URINE 0-5 /HPF (0-5); WBC,URINE (MAN) 0-5 /HPF (0-5)
[2022-09-30] MEDS ORDERED: HYDROMORPHONE 2MG/ML 2 MG/ML ML ONE (13:11)
[2022-09-30 14:15] LABS: CREATINE KINASE 17 IU/L (30-200)
[2022-09-30 14:30] VITALS: BP 146/75
[2022-09-30 15:47] VITALS: BP 146/75
[2022-09-30] MEDS ORDERED: TYLENOL EXTRA500 MG PO (16:25)
[2022-09-30] MEDS ORDERED: LOSARTAN POTASS50 MG PO (16:27)
[2022-09-30 21:23] VITALS: BP 132/78
[2022-09-30 21:24] VITALS: BP 132/78
[2022-10-01] VITALS (7 sets, daily range): BP systolic 119–152; BP diastolic 52–85
[2022-10-01] MEDS: MEROPENEM 1 GM in SODIUM CHLORIDE 0.9% 100 ML IV SCH ×3 (03:42→17:08)
[2022-10-01] MEDS: SODIUM CHLORIDE 0.9% 1000ML 1,000 ML IV SCH ×4 (03:43→20:53)
[2022-10-01 04:51] LABS: BASOPHILS # (AUTO) 0.1 (0.0-0.1); BASOPHILS % 0.9 % (0.0-1.0); EOSINOPHILS # (AUTO) 0.2 (0.0-0.4); EOSINOPHILS % 2.1 % (0.0-6.0); HEMOGLOBIN 12.7 g/dL (14.0-18.0); LYMPHOCYTES # (AUTO) 1.8 (1.0-3.2); LYMPHOCYTES % 23.6 % (18.0-39.1); MEAN CORPUSCULAR HEMOGLOBIN 32.4 pg (28-32); MEAN CORPUSCULAR HGB CONC 33.4 g/dL (31-35); MEAN CORPUSCULAR VOLUME 96.9 fL (81-99); MONOCYTES # (AUTO) 0.9 (0.2-0.8); MONOCYTES % 12.3 % (4.4-11.3); NEUTROPHILS # (AUTO) 4.7 (2.1-6.9); NEUTROPHILS % 60.8 % (38.7-80.0); PLATELET COUNT 236 x10e3/uL (140-360); RED BLOOD COUNT 3.92 x10e6/uL (4.3-5.7); RED CELL DISTRIBUTION WIDTH 13.6 % (11.7-14.4)
[2022-10-01 05:20] LABS: ALBUMIN/GLOBULIN RATIO 0.9 (0.8-2.0); ANION GAP 13.1 mmol/L (8-16); CALCIUM 9.2 mg/dL (8.4-10.2); CREATININE, SERUM 0.6 mg/dL (0.72-1.25); POTASSIUM 4.1 mmol/L (3.5-5.1)
[2022-10-01 05:40] LABS: CREATINE KINASE MB 0.8 ng/mL (0-5.0)
[2022-10-01] MEDS: HYDROCODONE/APAP 10MG-325MG TAB PO PRN (08:03)
[2022-10-01 13:15] LABS: CREATINE KINASE MB 0.8 ng/mL (0-5.0)
[2022-10-01] MEDS: ATORVASTATIN 40 MG TAB PO SCH (20:51)
[2022-10-01] MEDS: LOSARTAN POTASSIUM 25 MG TAB PO SCH (20:51)
[2022-10-02] VITALS (7 sets, daily range): BP systolic 104–130; BP diastolic 50–77
[2022-10-02] MEDS: MEROPENEM 1 GM in SODIUM CHLORIDE 0.9% 100 ML IV SCH ×3 (01:37→17:53)
[2022-10-02] MEDS ORDERED: BUPIVACAINE HCL 0.5% INJ 30 ML VIAL INJ ONE (06:42)
[2022-10-02] MEDS ORDERED: ONDANSETRON HCL INJ 2MG/ML 2ML 2 MG/ML VIAL IV PRN (09:15)
[2022-10-02] MEDS ORDERED: DIPHENHYDRAMINE HCL INJ 50 MG/ML VIAL IM PRN (09:15)
[2022-10-02] MEDS ORDERED: ACETAMINOPHEN 1000 MG/100 ML IV PRN (09:15)
[2022-10-02] MEDS ORDERED: ACETAMINOPHEN 325 MG TAB PO PRN (09:15)
[2022-10-02] MEDS ORDERED: NALOXONE HCL INJ 0.4 MG/ML AMP IV PRN (09:15)
[2022-10-02] MEDS: HYDROMORPHONE 0.2MG/ML-SOD CHL 30ML PCA SYRINGE IV PRN (09:47)
[2022-10-02] MEDS: DEXTROSE 5%/LACTATED RINGERS 1,000 ML IV SCH ×2 (09:57→17:52)
[2022-10-02] MEDS ORDERED: NEOSTIGMINE 1 MG/ML 10ML VIAL ONE (12:56)
[2022-10-02] MEDS ORDERED: KETOROLAC TROMETHAMINE 30 MG/ML VIAL ONE (12:56)
[2022-10-02] MEDS ORDERED: SEVOFLURANE INHAL SOLN 250 ML PEN BTL ONE (12:56)
[2022-10-02] MEDS ORDERED: LIDOCAINE HCL 2% LOCAL INJ 5 ML SDV VIAL INJ ONE (12:56)
[2022-10-02] MEDS ORDERED: ROCURONIUM BROMIDE 10 MG/ML 5ML VIAL IV ONE (12:56)
[2022-10-02] MEDS ORDERED: GLYCOPYRROLATE INJ 0.2 MG/ML VIAL ONE (12:56)
[2022-10-02] MEDS ORDERED: PROPOFOL IV EMULSION 10 MG/ML 20 ML VIAL ONE (12:56)
[2022-10-02] MEDS ORDERED: DEXAMETHASONE SOD PHOS INJ 4 MG/ML SDV ONE (12:56)
[2022-10-02] MEDS ORDERED: POVIDONE IODINE 0.05% 0.05 % ML PO ONE (12:56)
[2022-10-02] MEDS ORDERED: ONDANSETRON HCL INJ 2MG/ML 2ML 2 MG/ML VIAL ONE (12:56)
[2022-10-02] MEDS ORDERED: PHENYLEPHRINE HCL 1% 10 MG/ML VIAL ONE (12:56)
[2022-10-02] MEDS: ATORVASTATIN 40 MG TAB PO SCH (19:42)
[2022-10-02] MEDS: LOSARTAN POTASSIUM 25 MG TAB PO SCH (19:42)
[2022-10-03] VITALS (8 sets, daily range): BP systolic 120–135; BP diastolic 55–72
[2022-10-03] MEDS: DEXTROSE 5%/LACTATED RINGERS 1,000 ML IV SCH ×4 (01:22→23:39)
[2022-10-03] MEDS: MEROPENEM 1 GM in SODIUM CHLORIDE 0.9% 100 ML IV SCH ×3 (01:23→16:34)
[2022-10-03 06:20] LABS: BASOPHILS % 0.2 % (0.0-1.0); EOSINOPHILS % 0.1 % (0.0-6.0); HEMATOCRIT 31.6 % (38.2-49.6); LYMPHOCYTES # (AUTO) 1.6 (1.0-3.2); LYMPHOCYTES % 15.5 % (18.0-39.1); MEAN CORPUSCULAR HEMOGLOBIN 35.1 pg (28-32); MEAN CORPUSCULAR HGB CONC 34.8 g/dL (31-35); MONOCYTES # (AUTO) 1.3 (0.2-0.8); MONOCYTES % 12.4 % (4.4-11.3); NEUTROPHILS # (AUTO) 7.5 (2.1-6.9); NEUTROPHILS % 71.4 % (38.7-80.0); PLATELET COUNT 184 x10e3/uL (140-360); RED BLOOD COUNT 3.13 x10e6/uL (4.3-5.7); RED CELL DISTRIBUTION WIDTH 14.5 % (11.7-14.4)
[2022-10-03 07:09] LABS: ALBUMIN 2.4 g/dL (3.5-5.0); ALBUMIN/GLOBULIN RATIO 0.8 (0.8-2.0); ANION GAP 11.9 mmol/L (8-16); CALCIUM 8.4 mg/dL (8.4-10.2); CREATININE, SERUM 0.62 mg/dL (0.72-1.25); POTASSIUM 3.9 mmol/L (3.5-5.1)
[2022-10-03] MEDS ORDERED: SODIUM CHLORIDE 0.9% 250ML 250 ML ONE (09:31)
[2022-10-03] MEDS: HYDROMORPHONE 0.2MG/ML-SOD CHL 30ML PCA SYRINGE IV PRN (10:35)
[2022-10-03] MEDS: KETOROLAC TROMETHAMINE 30 MG/ML VIAL IV PRN (15:37)
[2022-10-03] MEDS: ATORVASTATIN 40 MG TAB PO SCH (20:31)
[2022-10-03] MEDS: LOSARTAN POTASSIUM 25 MG TAB PO SCH (20:32)
[2022-10-04] VITALS (7 sets, daily range): BP systolic 114–134; BP diastolic 60–78
[2022-10-04] MEDS: MEROPENEM 1 GM in SODIUM CHLORIDE 0.9% 100 ML IV SCH ×3 (01:41→16:23)
[2022-10-04 06:12] LABS: BASOPHILS % 0.3 % (0.0-1.0); EOSINOPHILS % 0.4 % (0.0-6.0); HEMATOCRIT 32.7 % (38.2-49.6); HEMOGLOBIN 11.3 g/dL (14.0-18.0); LYMPHOCYTES # (AUTO) 1.5 (1.0-3.2); LYMPHOCYTES % 15.4 % (18.0-39.1); MEAN CORPUSCULAR HEMOGLOBIN 35.2 pg (28-32); MEAN CORPUSCULAR HGB CONC 34.6 g/dL (31-35); MEAN CORPUSCULAR VOLUME 101.9 fL (81-99); NEUTROPHILS # (AUTO) 7.2 (2.1-6.9); NEUTROPHILS % 73.6 % (38.7-80.0); PLATELET COUNT 175 x10e3/uL (140-360); RED BLOOD COUNT 3.21 x10e6/uL (4.3-5.7); RED CELL DISTRIBUTION WIDTH 14.8 % (11.7-14.4)
[2022-10-04 06:33] LABS: ANION GAP 11.2 mmol/L (8-16); BLOOD UREA NITROGEN < 5 mg/dL (7-26); CALCIUM 8.7 mg/dL (8.4-10.2); CARBON DIOXIDE 31 mmol/L (22-29); CHLORIDE 100 mmol/L (98-107); CREATININE, SERUM 0.56 mg/dL (0.72-1.25); GLUCOSE 151 mg/dL (74-118); POTASSIUM 3.2 mmol/L (3.5-5.1); SODIUM 139 mmol/L (136-145)
[2022-10-04 06:34] LABS: BUN/CREATININE RATIO 9 (6-25)
[2022-10-04] MEDS: DEXTROSE 5%/LACTATED RINGERS 1,000 ML IV SCH ×2 (08:24→16:23)
[2022-10-04] MEDS: HYDROCODONE/APAP 10MG-325MG TAB PO PRN (08:24)
[2022-10-04] MEDS ORDERED: ONDANSETRON HCL 4 MG ORAL DISINTEGRATING TAB PO PRN (10:15)
[2022-10-04] MEDS ORDERED: POTASSIUM CHLORIDE 20 MEQ TAB CR PO ONE (10:30)
[2022-10-04] MEDS: KETOROLAC TROMETHAMINE 30 MG/ML VIAL IV PRN ×2 (14:03→22:02)
[2022-10-04] MEDS: ATORVASTATIN 40 MG TAB PO SCH (22:01)
[2022-10-04] MEDS: LOSARTAN POTASSIUM 25 MG TAB PO SCH (22:01)
[2022-10-05] VITALS (8 sets, daily range): BP systolic 114–146; BP diastolic 61–87
[2022-10-05] MEDS: DEXTROSE 5%/LACTATED RINGERS 1,000 ML IV SCH ×2 (01:23→11:01)
[2022-10-05] MEDS: MEROPENEM 1 GM in SODIUM CHLORIDE 0.9% 100 ML IV SCH ×3 (01:23→18:13)
[2022-10-05 06:33] LABS: BASOPHILS # (AUTO) 0.1 (0.0-0.1); BASOPHILS % 0.8 % (0.0-1.0); EOSINOPHILS # (AUTO) 0.3 (0.0-0.4); EOSINOPHILS % 3.4 % (0.0-6.0); HEMATOCRIT 36.1 % (38.2-49.6); HEMOGLOBIN 11.6 g/dL (14.0-18.0); LYMPHOCYTES # (AUTO) 1.5 (1.0-3.2); LYMPHOCYTES % 19.9 % (18.0-39.1); MEAN CORPUSCULAR HEMOGLOBIN 32.2 pg (28-32); MEAN CORPUSCULAR HGB CONC 32.1 g/dL (31-35); MEAN CORPUSCULAR VOLUME 100.3 fL (81-99); MONOCYTES # (AUTO) 0.8 (0.2-0.8); MONOCYTES % 10.9 % (4.4-11.3); NEUTROPHILS # (AUTO) 4.7 (2.1-6.9); NEUTROPHILS % 64.5 % (38.7-80.0); PLATELET COUNT 193 x10e3/uL (140-360); RED CELL DISTRIBUTION WIDTH 13.2 % (11.7-14.4)
[2022-10-05 07:16] LABS: ALANINE AMINOTRANSFERASE 25 IU/L (0-55); ALBUMIN 2.6 g/dL (3.5-5.0); ALBUMIN/GLOBULIN RATIO 0.7 (0.8-2.0); ALKALINE PHOSPHATASE 52 IU/L (40-150); ANION GAP 10.5 mmol/L (8-16); BLOOD UREA NITROGEN < 5 mg/dL (7-26); CALCIUM 8.9 mg/dL (8.4-10.2); CARBON DIOXIDE 31 mmol/L (22-29); CHLORIDE 104 mmol/L (98-107); CREATININE, SERUM 0.52 mg/dL (0.72-1.25); GLUCOSE 108 mg/dL (74-118); POTASSIUM 3.5 mmol/L (3.5-5.1); SODIUM 142 mmol/L (136-145)
[2022-10-05 07:23] LABS: BUN/CREATININE RATIO 10 (6-25)
[2022-10-05] MEDS: HYDROCODONE/APAP 10MG-325MG TAB PO PRN (15:51)
[2022-10-05] MEDS ORDERED: SODIUM CHLORIDE FLUSH 10 ML SYR INJ PRN (16:45)
[2022-10-05] MEDS: ATORVASTATIN 40 MG TAB PO SCH (20:12)
[2022-10-05] MEDS: LOSARTAN POTASSIUM 25 MG TAB PO SCH (20:13)
[2022-10-06] VITALS (8 sets, daily range): BP systolic 97–109; BP diastolic 56–75
[2022-10-06] MEDS: MEROPENEM 1 GM in SODIUM CHLORIDE 0.9% 100 ML IV SCH ×3 (06:14→18:20)
[2022-10-06] MEDS: HYDROCODONE/APAP 10MG-325MG TAB PO PRN (09:10)
[2022-10-06] MEDS: LOSARTAN POTASSIUM 25 MG TAB PO SCH (19:29)
[2022-10-06] MEDS: ATORVASTATIN 40 MG TAB PO SCH (19:30)
[2022-10-07] MEDS: MEROPENEM 1 GM in SODIUM CHLORIDE 0.9% 100 ML IV SCH ×3 (04:43→16:26)
[2022-10-07 04:49] VITALS: BP 110/45
[2022-10-07 07:42] VITALS: BP 135/62
[2022-10-07] MEDS: ACETAMINOPHEN 325 MG TAB PO PRN ×2 (08:39→16:27)
[2022-10-07 09:00] VITALS: BP 135/62
[2022-10-07 10:43] VITALS: BP 108/56
[2022-10-07 15:06] VITALS: BP 156/83
[2022-10-07 19:50] VITALS: BP 156/83
[2022-10-07] MEDS: ATORVASTATIN 40 MG TAB PO SCH (20:59)
[2022-10-07] MEDS: LOSARTAN POTASSIUM 25 MG TAB PO SCH (21:03)
[2022-10-08] MEDS: MEROPENEM 1 GM in SODIUM CHLORIDE 0.9% 100 ML IV SCH (03:49)
[2022-10-08 08:00] VITALS: BP 156/83
== END 2022-10-08 08:12 | disposition home or self-care (01) | DRG 330 ==
LOC: ER 09:06 → ERHOLD 09:36 → MED/SURG2 14:33
PROVIDERS: ADMIT Internal Medicine; ATTEND Internal Medicine
PROC: 0DTF4ZZ Resection of Right Large Intestine, Percutaneous Endoscopic Approach (ICD-10-PCS; principal; 2022-10-02 07:22)
PROC: 07BB4ZZ Excision of Mesenteric Lymphatic, Percutaneous Endoscopic Approach (ICD-10-PCS; 2022-10-02 07:22)
DX: C18.4 Malignant neoplasm of transverse colon (principal); C77.2 Secondary and unspecified malignant neoplasm of intra-abdominal lymph nodes; K56.609 Unspecified intestinal obstruction, unspecified as to partial versus complete obstruction; K57.20 Diverticulitis of large intestine with perforation and abscess without bleeding; G93.40 Encephalopathy, unspecified; D64.9 Anemia, unspecified; I10 Essential (primary) hypertension; F17.200 Nicotine dependence, unspecified, uncomplicated; E78.5 Hyperlipidemia, unspecified; Z96.651 Presence of right artificial knee joint; Z20.822 Contact with and (suspected) exposure to COVID-19; Z88.0 Allergy status to penicillin; Z99.81 Dependence on supplemental oxygen
CPT/HCPCS: 0223U; 36415; 71045; 74177; 80048; 80053; 81001; 82550; 82553; 83690; 83735; 83880; 84484; 85025; 85610; 85730; 88305; 88307; 88309; 88342; 94760; 94799; 99252; 99284; J1100; J1885; J2001; J2185; J2370; J2405; J2710; J7030; J7050; Q9963; Q9967

== ENCOUNTER → 2022-10-27 | Day surgery (SDC) | payer MEDICARE, OTHER ==
[~2022-10-27] MED LIST changes: +DEXAMETHASONE SOD PHOS INJ 4 MG/ML SDV ONE; +EPHEDRINE SULFATE INJ 50 MG/ML VIAL ONE; +FENTANYL CITRATE/PF 100MCG/2 ML INJ ONE; +HEPARIN SOD (PORCINE) 1000 UNIT/ML SDV ONE; +LEVOFLOXACIN 500MG/D5W 100ML 100 ML IV ONE; +LIDOCAINE HCL 2% LOCAL INJ 5 ML SDV VIAL INJ ONE; +LOSARTAN POTASS50 MG PO; +ONDANSETRON HCL INJ 2MG/ML 2ML 2 MG/ML VIAL ONE; +POVIDONE IODINE 0.05% 0.05 % ML PO ONE; +PROPOFOL IV EMULSION 10 MG/ML 20 ML VIAL ONE; +SEVOFLURANE INHAL SOLN 250 ML PEN BTL ONE; +SODIUM CHLORIDE 0.9% 100 ML ONE; +TYLENOL EXTRA500 MG PO; +ULTRAM 50MG50 MG PO
[2022-10-27 08:06] VITALS: BP 121/67
== END | disposition home or self-care (01) ==
LOC: OR 07:53
PROVIDERS: ATTEND Surgery
DX: C18.9 Malignant neoplasm of colon, unspecified (principal); G47.33 Obstructive sleep apnea (adult) (pediatric); I10 Essential (primary) hypertension; F17.210 Nicotine dependence, cigarettes, uncomplicated; Z01.810 Encounter for preprocedural cardiovascular examination; Z79.899 Other long term (current) drug therapy; Z99.81 Dependence on supplemental oxygen
CPT/HCPCS: 36561; 71045; 76000; 93005; C1751; J1100; J1644; J1956; J2001; J2405; J2704; J3010; J7050

== ENCOUNTER 2022-12-29 09:29 | Emergency (ER) | payer MEDICARE ==
[~2022-12-29] VITALS: Ht 180.3 cm; Wt 83.9 kg
[~2022-12-29 09:29] MED LIST changes: -DEXAMETHASONE SOD PHOS INJ 4 MG/ML SDV ONE; -EPHEDRINE SULFATE INJ 50 MG/ML VIAL ONE; -FENTANYL CITRATE/PF 100MCG/2 ML INJ ONE; -HEPARIN SOD (PORCINE) 1000 UNIT/ML SDV ONE; -LEVOFLOXACIN 500MG/D5W 100ML 100 ML IV ONE; -LIDOCAINE HCL 2% LOCAL INJ 5 ML SDV VIAL INJ ONE; -ONDANSETRON HCL INJ 2MG/ML 2ML 2 MG/ML VIAL ONE; -POVIDONE IODINE 0.05% 0.05 % ML PO ONE; -PROPOFOL IV EMULSION 10 MG/ML 20 ML VIAL ONE; -SEVOFLURANE INHAL SOLN 250 ML PEN BTL ONE; -SODIUM CHLORIDE 0.9% 100 ML ONE
[2022-12-29] MEDS ORDERED: SODIUM CHLORIDE 0.9% 1000ML 1,000 ML IV ONE ×2 (10:30→13:15)
[2022-12-29 10:32] LABS: BASOPHILS % 0.4 % (0.0-1.0); EOSINOPHILS % 0.2 % (0.0-6.0); HEMATOCRIT 36.1 % (38.2-49.6); HEMOGLOBIN 11.8 g/dL (14.0-18.0); LYMPHOCYTES # (AUTO) 1.3 (1.0-3.2); LYMPHOCYTES % 24.6 % (18.0-39.1); MEAN CORPUSCULAR HEMOGLOBIN 33.3 pg (28-32); MEAN CORPUSCULAR HGB CONC 32.7 g/dL (31-35); MONOCYTES # (AUTO) 0.3 (0.2-0.8); MONOCYTES % 5.1 % (4.4-11.3); NEUTROPHILS # (AUTO) 3.8 (2.1-6.9); NEUTROPHILS % 69.5 % (38.7-80.0); PLATELET COUNT 118 x10e3/uL (140-360); RED BLOOD COUNT 3.54 x10e6/uL (4.3-5.7); RED CELL DISTRIBUTION WIDTH 14.8 % (11.7-14.4)
[2022-12-29 11:00] LABS: ALBUMIN 3.5 g/dL (3.5-5.0); ALBUMIN/GLOBULIN RATIO 1.2 (0.8-2.0); ANION GAP 13.9 mmol/L (8-16); CALCIUM 9.6 mg/dL (8.4-10.2); CREATININE, SERUM 0.9 mg/dL (0.72-1.25); POTASSIUM 3.9 mmol/L (3.5-5.1)
[2022-12-29 11:03] LABS: MAGNESIUM 1.5 MG/DL (1.3-2.1)
[2022-12-29 13:22] VITALS: O2SAT 98
== END 2022-12-29 15:41 | disposition home or self-care (01) ==
LOC: ER 09:39
DX: R42 Dizziness and giddiness (principal); E86.1 Hypovolemia; T45.1X5A Adverse effect of antineoplastic and immunosuppressive drugs, initial encounter; I10 Essential (primary) hypertension; Z87.19 Personal history of other diseases of the digestive system
CPT/HCPCS: 36415; 74177; 80053; 83735; 84484; 85025; 93005; 99284; J7030

== ENCOUNTER → 2024-09-19 | Day surgery (SDC) | payer MEDICARE ==
[2024-09-13 13:30] LABS: BASOPHILS # (AUTO) 0.1 (0.0-0.1); BASOPHILS % 0.8 % (0.0-1.0); EOSINOPHILS # (AUTO) 0.1 (0.0-0.4); HEMATOCRIT 47.3 % (38.2-49.6); HEMOGLOBIN 15.6 g/dL (14.0-18.0); LYMPHOCYTES # (AUTO) 1.7 (1.0-3.2); LYMPHOCYTES % 16.9 % (18.0-39.1); MEAN CORPUSCULAR HEMOGLOBIN 33.4 pg (28-32); MEAN CORPUSCULAR VOLUME 101.3 fL (81-99); MONOCYTES # (AUTO) 1.4 (0.2-0.8); NEUTROPHILS # (AUTO) 6.7 (2.1-6.9); NEUTROPHILS % 66.9 % (38.7-80.0); PLATELET COUNT 180 x10e3/uL (140-360); RED BLOOD COUNT 4.67 x10e6/uL (4.3-5.7); RED CELL DISTRIBUTION WIDTH 14.7 % (11.7-14.4); WHITE BLOOD COUNT 10.05 x10e3/uL (4.8-10.8)
[2024-09-13 13:56] LABS: ANION GAP 15.3 mmol/L (8-16); CALCIUM 9.2 mg/dL (8.4-10.2); CREATININE, SERUM 1.17 mg/dL (0.72-1.25); POTASSIUM 4.3 mmol/L (3.5-5.1)
[~2024-09-19] MED LIST changes: +ASPIRIN81 MG PO; +ATIVAN1 MG PO; +CEFAZOLIN SODIUM 2 GM ONE; +DEXAMETHASONE SOD PHOS INJ 4 MG/ML SDV ONE; +EPHEDRINE SULFATE INJ 50 MG/ML VIAL ONE; +FENTANYL CITRATE/PF 100MCG/2 ML INJ ONE; +FLOMAX0.4 MG PO; +LACTATED RINGER'S 1,000 ML ONE; +LIDOCAINE HCL 2% LOCAL INJ 5 ML SDV VIAL INJ ONE; +MONTELUKAST SOD10 MG PO; +ONDANSETRON HCL INJ 2MG/ML 2ML 2 MG/ML VIAL ONE; +PROBIOTIC & AC1 EACH PO; +PROPOFOL IV EMULSION 10 MG/ML 20 ML VIAL ONE; +RESTORIL15 MG PO; +TRELEGY ELLIPT1 EACH IH
[2024-09-19 12:35] VITALS: TEMP 97.4
[2024-09-19 13:30] VITALS: BP 140/75; PULSE 76; RESP 17; O2SAT 97
== END | disposition home or self-care (01) ==
LOC: OR 08:14
PROVIDERS: ATTEND Surgery
DX: C18.9 Malignant neoplasm of colon, unspecified (principal); C78.00 Secondary malignant neoplasm of unspecified lung; G47.33 Obstructive sleep apnea (adult) (pediatric); I34.0 Nonrheumatic mitral (valve) insufficiency; I07.1 Rheumatic tricuspid insufficiency; J44.9 Chronic obstructive pulmonary disease, unspecified; I10 Essential (primary) hypertension; E78.5 Hyperlipidemia, unspecified; E66.3 Overweight; N40.0 Benign prostatic hyperplasia without lower urinary tract symptoms; F17.210 Nicotine dependence, cigarettes, uncomplicated; Z88.6 Allergy status to analgesic agent; Z88.0 Allergy status to penicillin; Z01.810 Encounter for preprocedural cardiovascular examination; Z01.812 Encounter for preprocedural laboratory examination; Z01.818 Encounter for other preprocedural examination; Z99.81 Dependence on supplemental oxygen; Z79.82 Long term (current) use of aspirin; Z79.899 Other long term (current) drug therapy; Z92.21 Personal history of antineoplastic chemotherapy; Z85.828 Personal history of other malignant neoplasm of skin
CPT/HCPCS: 36415; 36561; 71045; 71046; 76000; 80048; 85025; 93005; 93306; C1751; J1100; J2003; J2405; J2704; J3010; J7121